=== PATIENT | female | born 1985 | race African-American/Black ===

== ENCOUNTER 2023-08-31 09:53 | Inpatient (IN) | payer OTHER ==
[2023-08-31] MEDS ORDERED: Nitroglycerin 2% Ointment 1 INCH/1 GM Packet ONE (10:24)
[2023-08-31 10:59] LABS: #Basophils 0.1 10x3/uL (0.0-0.2); #Eosinphils 0.6 10x3/uL (0.0-0.5); #Monocytes 0.6 10x3/uL (0.0-1.1); #Neutrophils 6.3 10x3/uL (1.5-8.4); %Basophils 0.6 % (0.0-2.0); %Eosinophils 6.4 % (0.0-6.0); %Lymphocytes 11.9 % (18.0-47.0); %Monocytes 7.2 % (0.0-10.0); %Neutrophils 73.7 % (40.0-75.0); Hematocrit 31.6 % (34.9-44.5); Hemoglobin 10.1 g/dL (12.0-15.5); Mean Corpuscular Hemoglobin 27.4 pg (27.0-33.0); Mean Corpuscular Volume 85.9 fl (81.6-98.3); Mean Platelet Volume 11.8 fl (7.4-10.4); Platelet Count 195 10x3/uL (150-450); RBC Distribution Width 15.7 % (11.5-14.5); Red Blood Cell (RBC) Count 3.68 10x6/uL (3.90-5.03); White Blood Cell (WBC) Count 8.6 10x3/uL (3.5-10.5)
[2023-08-31 11:10] LABS: ALT (SGPT) 15 U/L (8-55); AST (SGOT) 14 U/L (5-34); Albumin 3.3 g/dL (3.5-5.0); Alkaline Phosphatase 96 U/L (40-110); Anion Gap 17 mmol/L (10-20); BUN (Urea Nitrogen) 38 mg/dL (7.0-18.7); Bilirubin, Total 0.5 mg/dL (0.2-1.2); Calc. Creatinine Clearance 0 mL/min (70-130); Calcium 9.2 mg/dL (7.8-10.44); Carbon Dioxide 30 mmol/L (22-29); Chloride 91 mmol/L (98-107); Estimated GFR 7; Globulin 2.8 g/dL (2.4-3.5); Lipase 33 U/L (8-78); Potassium 5.1 mmol/L (3.5-5.1); Protein, Total 6.1 g/dL (6.0-8.3); Sodium 133 mmol/L (136-145)
[2023-08-31 11:11] LABS: Glucose 533 mg/dL (70-105)
[2023-08-31 11:16] LABS: Troponin I 0.039 ng/mL (< 0.028)
[2023-08-31] MEDS ORDERED: Dextrose 50% Abboject 50 ML SYRINGE SLOW IVP PRN (11:52)
[2023-08-31] MEDS ORDERED: Dextrose 5% in Water 1,000 ML IV PRN (11:52)
[2023-08-31] MEDS ORDERED: Glucagon 1 MG/ML KIT IM PRN (11:52)
[2023-08-31] MEDS ORDERED: Insulin Regular 300 UNITS/3 ML VIAL ONE (12:43)
[2023-08-31] MEDS ORDERED: Heparin 10,000 UNITS/ 10 ML VIAL FS PRN (16:14)
[2023-08-31] MEDS ORDERED: Isosorbide Mononitrate 60 MG ER.TAB PO SCH (17:00)
[2023-08-31] MEDS ORDERED: Lantus 1000 UNITS/10 ML VIAL SC SCH (21:00)
[2023-08-31] MEDS ORDERED: Minoxidil 2.5 MG TAB PO SCH (21:00)
[2023-08-31] MEDS: NIFEdipine XL 60 MG ER.TAB PO SCH (21:14)
[2023-08-31] MEDS: Lisinopril 20 MG TAB PO SCH (21:14)
[2023-08-31] MEDS: Acetaminophen 325 MG TAB PO PRN (21:23)
[2023-09-01 03:58] LABS: ALT (SGPT) 13 U/L (8-55); AST (SGOT) 12 U/L (5-34); Albumin 2.9 g/dL (3.5-5.0); Alkaline Phosphatase 81 U/L (40-110); Anion Gap 14 mmol/L (10-20); BUN (Urea Nitrogen) 22 mg/dL (7.0-18.7); Bilirubin, Total 0.4 mg/dL (0.2-1.2); Calc. Creatinine Clearance 24 mL/min (70-130); Carbon Dioxide 31 mmol/L (22-29); Chloride 96 mmol/L (98-107); Estimated GFR 11; Globulin 2.8 g/dL (2.4-3.5); Glucose 90 mg/dL (70-105); Potassium 4.1 mmol/L (3.5-5.1); Protein, Total 5.7 g/dL (6.0-8.3); Sodium 137 mmol/L (136-145)
[2023-09-01] MEDS ORDERED: Dextrose 50% Abboject 50 ML SYRINGE ONE ×2 (08:00)
[2023-09-01 08:32] LABS: Actual Bicarbonate (HCO3a) 32.9 mEq/L (22-28); Base Excess (BEa) 7.4 mEq/L (-2.0 to +3.0); CO2 Tension 50.6 mmHg (35.0-45.0); Hematocrit-ABG 36 % (36.0-47.0); Hemoglobin (Hb) 12.1 g/dL (12.0-16.0); O2 Tension (PaO2), arterial 229.5 mmHg (80.0-100.0); Potassium - ABG Lab 4.26 mmol/L (3.70-5.30); Puncture Site RRA; pH, Arterial 7.431 (7.35-7.45)
[2023-09-01] MEDS ORDERED: Lantus 1000 UNITS/10 ML VIAL SC SCH (09:00)
[2023-09-01] MEDS: Dextrose 10% in Water 1,000 ML IV SCH ×2 (10:55→21:40)
[2023-09-01] MEDS: Lisinopril 20 MG TAB PO SCH ×2 (10:56→21:29)
[2023-09-01] MEDS: Labetalol HCl 200 MG TAB PO SCH ×3 (10:57→21:30)
[2023-09-01] MEDS: Isosorbide Mononitrate 60 MG ER.TAB PO SCH ×2 (11:01→21:29)
[2023-09-01] MEDS: NIFEdipine XL 60 MG ER.TAB PO SCH ×2 (11:03→21:29)
[2023-09-01] MEDS: hydrALAZINE 20 MG/ML VIAL SLOW IVP PRN (15:00)
[2023-09-01] MEDS: Insulin Regular 300 UNITS/3 ML VIAL SC PRN (16:04)
[2023-09-01] MEDS: Acetaminophen 325 MG TAB PO PRN (20:57)
[2023-09-01] MEDS: diphenhydrAMINE 25 MG CAP PO PRN (21:40)
[2023-09-01] MEDS: Simethicone Chewable 80 MG TAB PO PRN (23:26)
[2023-09-02] MEDS: diphenhydrAMINE 25 MG CAP PO PRN (03:20)
[2023-09-02 04:15] VITALS: BMI 30.3
[2023-09-02 04:29] LABS: Anion Gap 15 mmol/L (10-20); BUN (Urea Nitrogen) 24 mg/dL (7.0-18.7); Calc. Creatinine Clearance 23 mL/min (70-130); Carbon Dioxide 30 mmol/L (22-29); Chloride 96 mmol/L (98-107); Estimated GFR 12; Glucose 167 mg/dL (70-105); Sodium 137 mmol/L (136-145)
[2023-09-02 04:34] LABS: #Basophils 0.1 10x3/uL (0.0-0.2); #Eosinphils 0.5 10x3/uL (0.0-0.5); #Monocytes 0.7 10x3/uL (0.0-1.1); #Neutrophils 5.3 10x3/uL (1.5-8.4); %Basophils 0.7 % (0.0-2.0); %Eosinophils 5.9 % (0.0-6.0); %Lymphocytes 18.3 % (18.0-47.0); %Neutrophils 65.9 % (40.0-75.0); Hematocrit 30.8 % (34.9-44.5); Hemoglobin 10.1 g/dL (12.0-15.5); Mean Corpuscular HGB CONC 32.8 g/dL (32.0-36.0); Mean Corpuscular Hemoglobin 27.4 pg (27.0-33.0); Mean Corpuscular Volume 83.5 fl (81.6-98.3); Platelet Count 205 10x3/uL (150-450); Red Blood Cell (RBC) Count 3.69 10x6/uL (3.90-5.03); White Blood Cell (WBC) Count 8.1 10x3/uL (3.5-10.5)
[2023-09-02] MEDS: hydrALAZINE 20 MG/ML VIAL SLOW IVP PRN ×2 (06:35→19:20)
[2023-09-02] MEDS: Acetaminophen 325 MG TAB PO PRN (06:35)
[2023-09-02] MEDS: NIFEdipine XL 60 MG ER.TAB PO SCH ×2 (08:21→19:58)
[2023-09-02] MEDS: Isosorbide Mononitrate 60 MG ER.TAB PO SCH ×2 (10:13→19:57)
[2023-09-02] MEDS: Labetalol HCl 200 MG TAB PO SCH ×2 (10:14→19:57)
[2023-09-02] MEDS: Lisinopril 20 MG TAB PO SCH ×2 (10:14→19:58)
[2023-09-02] MEDS: Insulin Regular 300 UNITS/3 ML VIAL SC PRN ×3 (12:16→19:27)
[2023-09-02] MEDS: Simethicone Chewable 80 MG TAB PO PRN (16:26)
[2023-09-02 18:19] VITALS: TEMP 98.2
[2023-09-02] MEDS ORDERED: Pantoprazole 40 MG VIAL IVP SCH (18:45)
[2023-09-02 19:58] VITALS: BP 181/78
== END 2023-09-02 20:15 | disposition home or self-care (01) | DRG 291 ==
LOC: CSHERS 09:53 → CSHTELE 16:11 → CSHIMCU 09-01 09:14
PROVIDERS: ADMIT Internal Medicine; ATTEND Internal Medicine
PROC: 5A1D70Z Performance of Urinary Filtration, Intermittent, Less than 6 Hours Per Day (ICD-10-PCS; principal; 2023-08-31)
PROC: 4A033R1 Measurement of Arterial Saturation, Peripheral, Percutaneous Approach (ICD-10-PCS; 2023-09-01)
DX: I11.0 Hypertensive heart disease with heart failure (principal); G93.41 Metabolic encephalopathy; N18.6 End stage renal disease; I50.33 Acute on chronic diastolic (congestive) heart failure; E87.1 Hypo-osmolality and hyponatremia; E11.22 Type 2 diabetes mellitus with diabetic chronic kidney disease; D63.1 Anemia in chronic kidney disease; F17.210 Nicotine dependence, cigarettes, uncomplicated; F12.90 Cannabis use, unspecified, uncomplicated; E11.65 Type 2 diabetes mellitus with hyperglycemia; E11.649 Type 2 diabetes mellitus with hypoglycemia without coma; K29.70 Gastritis, unspecified, without bleeding; Z90.89 Acquired absence of other organs; Z79.899 Other long term (current) drug therapy; Z88.8 Allergy status to other drugs, medicaments and biological substances; Z90.49 Acquired absence of other specified parts of digestive tract; Z98.891 History of uterine scar from previous surgery; Z98.51 Tubal ligation status; Z98.890 Other specified postprocedural states; M10.9 Gout, unspecified; Z99.2 Dependence on renal dialysis; F41.9 Anxiety disorder, unspecified; F31.9 Bipolar disorder, unspecified; E11.319 Type 2 diabetes mellitus with unspecified diabetic retinopathy without macular edema; E11.40 Type 2 diabetes mellitus with diabetic neuropathy, unspecified
CPT/HCPCS: 36415; 36416; 36600; 71045; 80048; 80053; 82805; 83690; 83880; 84484; 85025; 90935; 93005; 93010; 96374; C9113; G0257; J0360; J1644; J1815; J7999

== ENCOUNTER 2023-11-30 11:18 | Inpatient (IN) | payer OTHER ==
[2023-11-30 11:46] LABS: Actual Bicarbonate (HCO3v) 32.1 mEq/L (22-28); Analyzer IN Cardio CS ER; Calcium, Ionized (venous) 1.25 mmol/L (1.16-1.32); Chloride (VBG) 94 mmol/L (98-106); Hematocrit-VBG 31 % (36.0-47.0); Hemoglobin (Hb) 10.4 g/dL (11.7-15.5); Potassium (VBG) 4.84 mmol/L (3.70-5.30); Puncture Site Other Site; Sodium 137 mmol/L (133-146)
[2023-11-30 11:59] LABS: #Eosinphils 0.2 10x3/uL (0.0-0.5); #Monocytes 0.9 10x3/uL (0.0-1.1); #Neutrophils 6.4 10x3/uL (1.5-8.4); %Basophils 0.3 % (0.0-2.0); %Eosinophils 2.8 % (0.0-6.0); %Lymphocytes 12.7 % (18.0-47.0); %Monocytes 10.2 % (0.0-10.0); %Neutrophils 73.7 % (40.0-75.0); Hematocrit 29.7 % (34.9-44.5); Hemoglobin 9.3 g/dL (12.0-15.5); Mean Corpuscular HGB CONC 31.3 g/dL (32.0-36.0); Mean Corpuscular Hemoglobin 27.5 pg (27.0-33.0); Mean Corpuscular Volume 87.9 fl (81.6-98.3); Mean Platelet Volume 10.7 fl (7.4-10.4); Platelet Count 246 10x3/uL (150-450); RBC Distribution Width 16.4 % (11.5-14.5); Red Blood Cell (RBC) Count 3.38 10x6/uL (3.90-5.03); White Blood Cell (WBC) Count 8.7 10x3/uL (3.5-10.5)
[2023-11-30 12:07] LABS: ALT (SGPT) 13 U/L (8-55); AST (SGOT) 13 U/L (5-34); Albumin 3.6 g/dL (3.5-5.0); Alkaline Phosphatase 79 U/L (40-110); Anion Gap 16 mmol/L (10-20); BUN (Urea Nitrogen) 50 mg/dL (7.0-18.7); Bilirubin, Total 0.4 mg/dL (0.2-1.2); Calc. Creatinine Clearance 0 mL/min (70-130); Calcium 10.4 mg/dL (7.8-10.44); Carbon Dioxide 31 mmol/L (22-29); Chloride 95 mmol/L (98-107); Estimated GFR 8; Globulin 3.2 g/dL (2.4-3.5); Glucose 301 mg/dL (70-105); Potassium 4.8 mmol/L (3.5-5.1); Protein, Total 6.8 g/dL (6.0-8.3); Sodium 137 mmol/L (136-145)
[2023-11-30] MEDS ORDERED: Glucagon 1 MG/ML KIT IM PRN (14:34)
[2023-11-30] MEDS ORDERED: Dextrose 50% Abboject 50 ML SYRINGE SLOW IVP PRN (14:34)
[2023-11-30] MEDS ORDERED: Dextrose 5% in Water 1,000 ML IV PRN (14:34)
[2023-11-30] MEDS ORDERED: EPOETIN ALFA-EPBX (ESRD) 10,000 UNITS/ML VIAL SC SCH (21:00)
[2023-11-30] MEDS: HumaLOG 300 UNITS/3 ML VIAL SC PRN (22:25)
[2023-12-01 06:18] LABS: Phosphorus 4.2 mg/dL (2.3-4.7)
[2023-12-01 07:04] LABS: #Eosinphils 0.2 10x3/uL (0.0-0.5); #Monocytes 0.7 10x3/uL (0.0-1.1); #Neutrophils 4.9 10x3/uL (1.5-8.4); %Basophils 0.4 % (0.0-2.0); %Eosinophils 3.1 % (0.0-6.0); %Lymphocytes 18.7 % (18.0-47.0); %Monocytes 10.1 % (0.0-10.0); %Neutrophils 67.4 % (40.0-75.0); Hematocrit 29.8 % (34.9-44.5); Hemoglobin 9.4 g/dL (12.0-15.5); Mean Corpuscular HGB CONC 31.5 g/dL (32.0-36.0); Mean Corpuscular Hemoglobin 27.4 pg (27.0-33.0); Mean Corpuscular Volume 86.9 fl (81.6-98.3); Platelet Count 222 10x3/uL (150-450); RBC Distribution Width 16.3 % (11.5-14.5); Red Blood Cell (RBC) Count 3.43 10x6/uL (3.90-5.03); White Blood Cell (WBC) Count 7.3 10x3/uL (3.5-10.5)
[2023-12-01 08:06] LABS: Anion Gap 17 mmol/L (10-20); BUN (Urea Nitrogen) 36 mg/dL (7.0-18.7); Calc. Creatinine Clearance 22 mL/min (70-130); Calcium 9.3 mg/dL (7.8-10.44); Carbon Dioxide 27 mmol/L (22-29); Chloride 98 mmol/L (98-107); Estimated GFR 11; Glucose 138 mg/dL (70-105); Potassium 4.4 mmol/L (3.5-5.1); Sodium 138 mmol/L (136-145)
[2023-12-01] MEDS ORDERED: NIFEdipine XL 60 MG ER.TAB PO SCH (12:00)
[2023-12-01] MEDS ORDERED: Isosorbide Mononitrate 60 MG ER.TAB PO SCH (12:00)
[2023-12-01] MEDS ORDERED: Lisinopril 20 MG TAB PO SCH (12:00)
[2023-12-01] MEDS ORDERED: Labetalol HCl 200 MG TAB PO SCH (12:00)
[2023-12-01] MEDS: Labetalol HCl 200 MG TAB PO SCH (20:31)
[2023-12-01] MEDS: Isosorbide Mononitrate 60 MG ER.TAB PO SCH (20:32)
[2023-12-01] MEDS: NIFEdipine XL 60 MG ER.TAB PO SCH (20:32)
[2023-12-01] MEDS: Lisinopril 20 MG TAB PO SCH (20:32)
[2023-12-01] MEDS: HumaLOG 300 UNITS/3 ML VIAL SC PRN (20:34)
[2023-12-01] MEDS: diphenhydrAMINE 25 MG CAP PO PRN (22:32)
[2023-12-02 04:22] LABS: #Eosinphils 0.3 10x3/uL (0.0-0.5); #Monocytes 0.8 10x3/uL (0.0-1.1); #Neutrophils 4.6 10x3/uL (1.5-8.4); %Basophils 0.4 % (0.0-2.0); %Eosinophils 4.3 % (0.0-6.0); %Monocytes 11.6 % (0.0-10.0); %Neutrophils 65.4 % (40.0-75.0); Hematocrit 29.9 % (34.9-44.5); Hemoglobin 9.4 g/dL (12.0-15.5); Mean Corpuscular HGB CONC 31.4 g/dL (32.0-36.0); Mean Corpuscular Hemoglobin 27.4 pg (27.0-33.0); Mean Corpuscular Volume 87.2 fl (81.6-98.3); Mean Platelet Volume 11.1 fl (7.4-10.4); Platelet Count 207 10x3/uL (150-450); Red Blood Cell (RBC) Count 3.43 10x6/uL (3.90-5.03)
[2023-12-02 04:24] LABS: Anion Gap 15 mmol/L (10-20); BUN (Urea Nitrogen) 31 mg/dL (7.0-18.7); Calc. Creatinine Clearance 26 mL/min (70-130); Carbon Dioxide 28 mmol/L (22-29); Chloride 98 mmol/L (98-107); Estimated GFR 13; Glucose 127 mg/dL (70-105); Potassium 4.3 mmol/L (3.5-5.1); Sodium 137 mmol/L (136-145)
[2023-12-02] MEDS: Labetalol HCl 200 MG TAB PO SCH ×2 (08:36→21:32)
[2023-12-02] MEDS: Isosorbide Mononitrate 60 MG ER.TAB PO SCH ×2 (08:36→21:32)
[2023-12-02] MEDS: Gabapentin 300 MG CAP PO SCH (08:37)
[2023-12-02] MEDS: Lantus 1000 UNITS/10 ML VIAL SC SCH (08:37)
[2023-12-02] MEDS: Lisinopril 20 MG TAB PO SCH ×2 (08:37→21:33)
[2023-12-02] MEDS: NIFEdipine XL 60 MG ER.TAB PO SCH ×2 (08:37→21:33)
[2023-12-02] MEDS: HumaLOG 300 UNITS/3 ML VIAL SC PRN ×2 (12:28→21:31)
[2023-12-02] MEDS ORDERED: Acetaminophen 325 MG TAB PO PRN (12:48)
[2023-12-02] MEDS ORDERED: Calcium Carbonate 500 MG ChewTAB PO SCH (15:00)
[2023-12-02 15:56] VITALS: BMI 31.3
[2023-12-02] MEDS ORDERED: Loratadine 10 MG TAB PO PRN (22:52)
[2023-12-02] MEDS ORDERED: Benzonatate 100 MG CAP PO PRN (22:52)
[2023-12-02] MEDS ORDERED: Artificial Tear Sol 15 ML BOT EA EYE PRN (22:52)
[2023-12-02] MEDS ORDERED: Calcium Carbonate 500 MG ChewTAB PO PRN (22:52)
[2023-12-02] MEDS ORDERED: GUAIFENESIN SF SOLN 200 MG/10 ML UDCUP PO PRN (22:52)
[2023-12-02] MEDS ORDERED: Bisacodyl 5 MG TAB PO PRN (22:52)
[2023-12-02] MEDS ORDERED: Benzocaine/Menthol 1 LOZ LOZ PO PRN (22:52)
[2023-12-02] MEDS ORDERED: Moisturizing Cream (Eucerin) 113 GM JAR TOP PRN (22:52)
[2023-12-02] MEDS ORDERED: Sodium Chloride 0.65% Nasal 44 ML BOT EA NARE PRN (22:52)
[2023-12-02] MEDS ORDERED: Senokot S 8.6-50 MG TAB PO PRN (22:52)
[2023-12-03 04:46] LABS: #Eosinphils 0.3 10x3/uL (0.0-0.5); #Monocytes 0.8 10x3/uL (0.0-1.1); #Neutrophils 4.6 10x3/uL (1.5-8.4); %Basophils 0.4 % (0.0-2.0); %Eosinophils 4.2 % (0.0-6.0); %Lymphocytes 20.5 % (18.0-47.0); %Monocytes 10.7 % (0.0-10.0); %Neutrophils 64.1 % (40.0-75.0); Hematocrit 31.4 % (34.9-44.5); Hemoglobin 9.9 g/dL (12.0-15.5); Mean Corpuscular HGB CONC 31.5 g/dL (32.0-36.0); Mean Corpuscular Hemoglobin 27.5 pg (27.0-33.0); Mean Corpuscular Volume 87.2 fl (81.6-98.3); Platelet Count 204 10x3/uL (150-450); White Blood Cell (WBC) Count 7.1 10x3/uL (3.5-10.5)
[2023-12-03 04:53] LABS: Anion Gap 17 mmol/L (10-20); BUN (Urea Nitrogen) 47 mg/dL (7.0-18.7); Calc. Creatinine Clearance 20 mL/min (70-130); Calcium 9.2 mg/dL (7.8-10.44); Carbon Dioxide 25 mmol/L (22-29); Chloride 98 mmol/L (98-107); Estimated GFR 10; Potassium 5.1 mmol/L (3.5-5.1); Sodium 135 mmol/L (136-145)
[2023-12-03 05:07] LABS: Critical Call Chemistry NUR.SR7 @ 0507; Glucose 51 mg/dL (70-105)
[2023-12-03] MEDS ORDERED: cloNIDine 0.3mg/24 Hour PATCH TD SCH (09:00)
[2023-12-03] MEDS: NIFEdipine XL 60 MG ER.TAB PO SCH ×2 (09:38→21:17)
[2023-12-03] MEDS: Lisinopril 20 MG TAB PO SCH ×2 (09:38→21:17)
[2023-12-03] MEDS: glipiZIDE 5 MG TAB PO SCH (09:39)
[2023-12-03] MEDS: Isosorbide Mononitrate 60 MG ER.TAB PO SCH ×2 (09:39→21:18)
[2023-12-03] MEDS: Labetalol HCl 200 MG TAB PO SCH ×2 (09:39→21:18)
[2023-12-03] MEDS: Gabapentin 300 MG CAP PO SCH (09:39)
[2023-12-03] MEDS: Lantus 1000 UNITS/10 ML VIAL SC SCH (09:40)
[2023-12-03] MEDS ORDERED: Sodium Bicarbonate 2.5 MEQ/5 ML SDV ONE (11:23)
[2023-12-03] MEDS ORDERED: Lidocaine 1% PF 5 ML VIAL ONE (11:23)
[2023-12-03] MEDS: HumaLOG 300 UNITS/3 ML VIAL SC PRN (21:42)
[2023-12-03] MEDS: diphenhydrAMINE 25 MG CAP PO PRN (21:59)
[2023-12-04 05:53] LABS: Anion Gap 16 mmol/L (10-20); BUN (Urea Nitrogen) 40 mg/dL (7.0-18.7); Calc. Creatinine Clearance 24 mL/min (70-130); Calcium 8.5 mg/dL (7.8-10.44); Carbon Dioxide 26 mmol/L (22-29); Chloride 101 mmol/L (98-107); Estimated GFR 12; Glucose 93 mg/dL (70-105); Potassium 4.7 mmol/L (3.5-5.1); Sodium 138 mmol/L (136-145)
[2023-12-04 05:59] LABS: #Eosinphils 0.2 10x3/uL (0.0-0.5); #Monocytes 0.8 10x3/uL (0.0-1.1); #Neutrophils 4.3 10x3/uL (1.5-8.4); %Basophils 0.5 % (0.0-2.0); %Lymphocytes 20.3 % (18.0-47.0); %Monocytes 11.3 % (0.0-10.0); %Neutrophils 64.4 % (40.0-75.0); Hematocrit 32.8 % (34.9-44.5); Hemoglobin 10.4 g/dL (12.0-15.5); Mean Corpuscular HGB CONC 31.7 g/dL (32.0-36.0); Mean Corpuscular Hemoglobin 27.7 pg (27.0-33.0); Mean Corpuscular Volume 87.5 fl (81.6-98.3); Mean Platelet Volume 11.1 fl (7.4-10.4); Platelet Count 206 10x3/uL (150-450); RBC Distribution Width 15.9 % (11.5-14.5); Red Blood Cell (RBC) Count 3.75 10x6/uL (3.90-5.03); White Blood Cell (WBC) Count 6.6 10x3/uL (3.5-10.5)
[2023-12-04] MEDS: Labetalol HCl 200 MG TAB PO SCH (09:00)
[2023-12-04] MEDS: Lantus 1000 UNITS/10 ML VIAL SC SCH (09:00)
[2023-12-04] MEDS: Gabapentin 300 MG CAP PO SCH (11:21)
[2023-12-04] MEDS: Isosorbide Mononitrate 60 MG ER.TAB PO SCH (11:21)
[2023-12-04] MEDS: Lisinopril 20 MG TAB PO SCH (11:21)
[2023-12-04] MEDS: NIFEdipine XL 60 MG ER.TAB PO SCH (11:22)
[2023-12-04] MEDS: glipiZIDE 5 MG TAB PO SCH (11:22)
[2023-12-04 17:24] VITALS: BP 177/94; TEMP 98.6
== END 2023-12-04 18:00 | disposition home or self-care (01) | DRG 432 ==
LOC: CSHERS 11:18 → CSHERHOLD 13:24 → CSHTELE 19:28
PROVIDERS: ADMIT Internal Medicine; ATTEND Family Medicine
PROC: 5A1D70Z Performance of Urinary Filtration, Intermittent, Less than 6 Hours Per Day (ICD-10-PCS; 2023-11-30)
PROC: 5A09357 Assistance with Respiratory Ventilation, Less than 24 Consecutive Hours, Continuous Positive Airway Pressure (ICD-10-PCS; 2023-11-30)
PROC: 0W9G3ZZ Drainage of Peritoneal Cavity, Percutaneous Approach (ICD-10-PCS; principal; 2023-12-03)
DX: K74.69 Other cirrhosis of liver (principal); J96.01 Acute respiratory failure with hypoxia; N18.6 End stage renal disease; I13.2 Hypertensive heart and chronic kidney disease with heart failure and with stage 5 chronic kidney disease, or end stage renal disease; R18.8 Other ascites; I50.30 Unspecified diastolic (congestive) heart failure; B19.20 Unspecified viral hepatitis C without hepatic coma; E78.5 Hyperlipidemia, unspecified; E11.22 Type 2 diabetes mellitus with diabetic chronic kidney disease; F31.9 Bipolar disorder, unspecified; F41.9 Anxiety disorder, unspecified; F17.210 Nicotine dependence, cigarettes, uncomplicated; I16.0 Hypertensive urgency; E88.09 Other disorders of plasma-protein metabolism, not elsewhere classified; D63.1 Anemia in chronic kidney disease; Z90.49 Acquired absence of other specified parts of digestive tract; Z98.890 Other specified postprocedural states; Z98.51 Tubal ligation status; Z99.2 Dependence on renal dialysis; Z88.8 Allergy status to other drugs, medicaments and biological substances; Z79.4 Long term (current) use of insulin; Z79.899 Other long term (current) drug therapy
CPT/HCPCS: 36415; 36416; 49083; 71045; 80048; 80053; 82040; 82805; 83970; 84100; 85025; 85610; 90935; 93005; 94660; 94760; G0257; J1815; Q5105